=== PATIENT | male | born 1975 | race Caucasian/White ===

== ENCOUNTER 2016-09-15 11:13 | Outpatient (CLI) | payer OTHER ==
--- NOTE | 2016-09-15 13:07 | RAD ---
RIGHT KNEE 4 VIEWS: HISTORY: Pain when climbing stairs. COMPARISON: None. FINDINGS: No acute fracture or malalignment. No significant joint effusion. No significant osteophyte format ion. IMPRESSION: Unremarkable exam of the knee. MRI may be helpful to evaluate for internal derangement if clinical symptoms suggest. POS: SUSY
== END 2016-09-15 11:14 | disposition home or self-care (01) ==
LOC: MADRAD 11:13
PROVIDERS: ATTEND Obstetrics & Gynecology
DX: M25.561 Pain in right knee (principal)

== ENCOUNTER 2024-02-13 06:15 | Emergency (ER) | payer BC, OTHER ==
[2024-02-13] MEDS ORDERED: Methocarbamol 500 MG TAB ONE (07:03)
[2024-02-13] MEDS ORDERED: Ondansetron PF 4 MG/2 ML Vial ONE (07:03)
[2024-02-13] MEDS ORDERED: Morphine 2 MG/ML VIAL ONE ×2 (07:03→08:29)
[2024-02-13] MEDS ORDERED: Aspirin Chewable 81 MG TAB ONE (07:04)
[2024-02-13 07:08] LABS: #Basophils 0.1 thou/uL (0.0-0.2); #Lymphocytes 1.3 thou/uL (1.20-3.40); #Monocytes 0.7 thou/uL (0.11-0.59); #Neutrophils 12.3 thou/uL (1.40-6.50); %Basophils 0.6 % (0.0-1.0); %Eosinophils 0.1 % (0.0-10.0); %Lymphocytes 9.2 % (21.0-51.0); %Neutrophils 85.1 % (42.0-75.0); Hematocrit 53.4 % (42.0-52.0); Hemoglobin 17.6 g/dL (14.0-18.0); Mean Corpuscular HGB CONC 33.1 g/dL (32.0-36.0); Mean Corpuscular Hemoglobin 32.4 pg (27.0-31.0); Mean Corpuscular Volume 98.2 fl (78.0-98.0); Mean Platelet Volume 8.7 fL (7.4-10.4); Platelet Count 185 10x3/uL (130-400); RBC Distribution Width 11.6 % (11.5-14.5); Red Blood Cell (RBC) Count 5.44 mill/uL (4.70-6.10); White Blood Cell (WBC) Count 14.5 10x3/uL (4.8-10.8)
[2024-02-13 07:27] LABS: ALT (SGPT) 30 U/L (8-55); AST (SGOT) 16 U/L (5-34); Albumin 4.3 g/dL (3.5-5.0); Alkaline Phosphatase 79 U/L (40-110); Anion Gap 15 mmol/L (10-20); BUN (Urea Nitrogen) 13 mg/dL (8.9-20.6); Bilirubin, Total 0.4 mg/dL (0.2-1.2); Calc. Creatinine Clearance 0 mL/min (70-130); Calcium 9.5 mg/dL (7.8-10.44); Carbon Dioxide 23 mmol/L (22-29); Chloride 106 mmol/L (98-107); Estimated GFR 105; Globulin 3.2 g/dL (2.4-3.5); Glucose 139 mg/dL (70-105); Lipase 12 U/L (8-78); Potassium 4.4 mmol/L (3.5-5.1); Protein, Total 7.5 g/dL (6.0-8.3); Sodium 140 mmol/L (136-145); Troponin I Less than 0.010 ng/mL (< 0.028)
[2024-02-13] MEDS ORDERED: Acetaminophen 500 MG TAB ONE (08:28)
[2024-02-13] MEDS ORDERED: Lactated Ringer's 1,000 ML ONE (08:29)
[2024-02-13] MEDS ORDERED: Iopamidol 370 76% 100 ML VIAL ONE (09:00)
[2024-02-13] MEDS ORDERED: Sodium Chloride 0.9% 100 ML BAG ONE (09:00)
[2024-02-13] MEDS ORDERED: Ipratropium/Albuterol 3 ML NEB ONE (09:21)
[2024-02-13] MEDS ORDERED: methylPREDNISolone Sod Succ/PF 125 MG/2 ML VIAL ONE (09:21)
[2024-02-13 10:04] LABS: Troponin I Less than 0.010 ng/mL (< 0.028)
== END 2024-02-13 10:41 | disposition home or self-care (01) ==
LOC: MADERS 06:15
DX: J44.1 Chronic obstructive pulmonary disease with (acute) exacerbation (principal); R07.9 Chest pain, unspecified; K82.8 Other specified diseases of gallbladder; E78.00 Pure hypercholesterolemia, unspecified; F17.210 Nicotine dependence, cigarettes, uncomplicated; Z79.899 Other long term (current) drug therapy
CPT/HCPCS: 71045; 71275; 74174; 80053; 83690; 84484; 85025; 85379; 93005; 94760; 96374; 96375; 96376; J2272; J2405; J2919; J7120; J7620; Q9967